=== PATIENT | male | born 1970 | race Two or more races ===

== ENCOUNTER → 2024-02-02 | Outpatient (CLI) | payer OTHER ==
[2024-02-02 09:31] LABS: Basophils # (auto) 0 10 ^3/uL (0-0.2); Basophils % (auto) 0.4 % (0.0-2.0); Eosinophils # (auto) 0.1 10 ^3/uL (0-0.8); Eosinophils % (auto) 1.1 % (0.0-7.0); Hematocrit 45.8 % (41.0-53.0); Hemoglobin 15.4 g/dL (13.5-17.5); Lymphocytes # (auto) 2.6 10 ^3/uL (0.4-5.4); Lymphocytes % (auto) 37.8 % (10.0-50.0); Mean Corpuscular Hemoglobin 28.8 pg (28.0-32.0); Mean Corpuscular Hgb Conc. 33.5 g/dL (32.0-36.0); Mean Corpuscular Volume 85.9 fL (80.0-100.0); Monocytes # (auto) 0.5 10 ^3/uL (0-1.3); Monocytes % (auto) 7.7 % (0.0-12.0); Neutrophils # (auto) 3.6 10 ^3/uL (1.6-8.6); Red Blood Cells 5.33 10^6/uL (4.5-5.90); White Blood Cell 6.8 10^3/uL (4.4-10.8)
[2024-02-02 10:14] LABS: Alanine Aminotransferase 55 U/L (7-40); Albumin 4.4 g/dL (3.2-4.8); Alkaline Phosphatase 79 U/L (46-116); Anion Gap 8 (5-15); Aspartate Aminotransferase 19 U/L (13-40); BUN/Creatinine Ratio 18.8 (10.0-20.0); Blood Urea Nitrogen 18 mg/dL (9-23); Calcium 9.5 mg/dL (8.5-10.1); Carbon Dioxide 26 mmol/L (20-30); Chloride 106 mmol/L (98-107); Glucose 101 mg/dL (74-106); LDL Cholesterol 138 mg/dL (< 100); Potassium 3.8 mmol/L (3.5-5.1); Sodium 140 mmol/L (136-145); Triglycerides 160 mg/dL (< 150)
[2024-02-02 10:15] LABS: Bilirubin, Total 0.5 mg/dL (0.2-1.0); Cholesterol 187 mg/dL (< 200); HDL Cholesterol 37 mg/dL (40-59); Total Protein 7.1 g/dL (5.7-8.2)
== END | disposition home or self-care (01) ==
LOC: LAB 09:13
PROVIDERS: ATTEND Student in an Organized Health Care Education/Training Program
DX: Z00.00 Encounter for general adult medical examination without abnormal findings (principal); Z12.11 Encounter for screening for malignant neoplasm of colon; K21.9 Gastro-esophageal reflux disease without esophagitis; R07.89 Other chest pain; R00.2 Palpitations
CPT/HCPCS: 36415; 80053; 80061; 85025

== ENCOUNTER → 2024-02-08 | Outpatient (CLI) | payer OTHER | END | disposition home or self-care (01) | LOC: LAB 12:51 | PROVIDERS: ATTEND Student in an Organized Health Care Education/Training Program | DX: Z12.11 Encounter for screening for malignant neoplasm of colon (principal); K21.9 Gastro-esophageal reflux disease without esophagitis; R00.2 Palpitations | CPT/HCPCS: 82274 ==

== ENCOUNTER → 2024-04-26 | Outpatient (CLI) | payer OTHER | END | disposition home or self-care (01) | LOC: XYW 08:54 | PROVIDERS: ATTEND Student in an Organized Health Care Education/Training Program | DX: I51.89 Other ill-defined heart diseases (principal); R00.2 Palpitations; R07.9 Chest pain, unspecified | CPT/HCPCS: 93306 ==

== ENCOUNTER → 2024-05-01 | Outpatient (CLI) | payer OTHER ==
[~2024-05-01] VITALS: Ht 167.6 cm; Wt 69.9 kg
[2024-05-01] MEDS: ADENOSINE 59 MG in GIVE UN-DILUTED 0 ML IV STA (10:20)
== END | disposition home or self-care (01) ==
LOC: XYW 08:26
PROVIDERS: ATTEND Student in an Organized Health Care Education/Training Program
DX: R07.9 Chest pain, unspecified (principal); R00.2 Palpitations; K21.9 Gastro-esophageal reflux disease without esophagitis
CPT/HCPCS: 78452; 93017; A9500; J0153

== ENCOUNTER → 2024-09-19 | Day surgery (SDC) | payer OTHER ==
[2024-09-14 09:22] LABS: Urine Bacteria None Seen /hpf (None Seen)
[2024-09-14 09:46] LABS: INR 1.01 (0.9-1.15); Prothrombin Time 10.7 sec (9.3-11.8)
[2024-09-14 09:53] LABS: Basophils # (auto) 0 10 ^3/uL (0-0.2); Basophils % (auto) 0.4 % (0.0-2.0); Eosinophils # (auto) 0.1 10 ^3/uL (0-0.8); Eosinophils % (auto) 1.9 % (0.0-7.0); Hemoglobin 16.2 g/dL (13.5-17.5); Lymphocytes # (auto) 2.5 10 ^3/uL (0.4-5.4); Lymphocytes % (auto) 35.5 % (10.0-50.0); Mean Corpuscular Hgb Conc. 33.8 g/dL (32.0-36.0); Mean Corpuscular Volume 85.7 fL (80.0-100.0); Monocytes # (auto) 0.5 10 ^3/uL (0-1.3); Monocytes % (auto) 7.8 % (0.0-12.0); Neutrophils # (auto) 3.8 10 ^3/uL (1.6-8.6); Neutrophils % (auto) 54.4 % (37.0-80.0); Nucleated Red Blood Cells % 0.2 %; Platelet Count (auto) 179 10^3/uL (140-450); Red Cell Distribution Width 13.5 % (11.8-14.3)
[2024-09-14 10:07] LABS: Urine Blood Negative /uL (Negative); Urine Clarity Clear (Clear); Urine Color Light-Yellow (Yellow); Urine Protein, UAD Negative (Negative); Urine Specific Gravity 1.023 (1.001-1.035); Urine Squamous Epithelial Cell None Seen /hpf (<5); Urine Urobilinogen Normal (Negative); Urine WBC 1 /HPF (0-3)
[2024-09-14 11:33] LABS: Alkaline Phosphatase 70 U/L (46-116); Calcium 9.9 mg/dL (8.7-10.4)
[2024-09-14 11:34] LABS: Anion Gap 8 (5-15); Blood Urea Nitrogen 13 mg/dL (9-23); Carbon Dioxide 26 mmol/L (20-31); Chloride 104 mmol/L (98-107); Potassium 3.9 mmol/L (3.5-5.1); Sodium 138 mmol/L (136-145)
[2024-09-14 11:35] LABS: Albumin 4.7 g/dL (3.2-4.8); Aspartate Aminotransferase 29 U/L (13-40); Bilirubin, Total 0.6 mg/dL (0.2-1.0); Total Protein 7.3 g/dL (5.7-8.2)
[2024-09-14 11:48] LABS: Alanine Aminotransferase 83 U/L (7-40); Glucose 106 mg/dL (74-106)
[~2024-09-19] VITALS: Ht 167.6 cm; Wt 77.1 kg
[~2024-09-19] MED LIST: BACITRACIN TOP OINT 1 UD PKG TOP ONE; DexAMETHasone SOD PHOS 10MG/1ML VIAL INJ ONE; ETOMIDATE (2MG/ML) 20ML VIAL IV ONE; GLYCOPYRROLATE 0.2 MG/ML 1ML VIAL ONE; HYDROmorphone HCL 2 MG/ML VL/or syr ONE; KETAMINE 50mg/ML 1ml syringe ONE; KETOROLAC TROMETH 30 MG/ML 1ML VIAL ONE; LIDOCAINE 2% (LOCAL ANESTH.) PF 5ml SDV ONE; Lidocaine/Epinephrine 1%-1:100,000 30ML VL ONE; MIDAZOLAM HCL 2MG/2ML 2ml VIAL (1mg/ml) ONE; MORPHINE SULF PF 5 MG/10 ML VIAL ONE; ONDANSETRON HCL 4 MG/2 ML VIAL ONE; PROPOFOL 10 MG/ML 20 ML IV ONE; ROCURONIUM 10MG/ML 10ML VIAL IV ONE; SUGAMMADEX 200mg/2ml Vial (100MG/ML) IV ONE; ceFAZolin 2 GM/D5W100ml 100 ML IV ONE; fentaNYL CITRATE 100 MCG/2 ML VL ONE
[2024-09-19 09:12] VITALS: PULSE 72; RESP 10; TEMP 96.3; O2SAT 95
--- NOTE | 2024-09-19 09:14 | DVHDS2 ---
New Physician D'charge PN Admitting Diagnosis Admitting Diagnosis Vasectomy consultation Discharge Diagnosis same Operations or Procedures Vasectomy Reason(s) For Hospitalization Surgery Treatment Plan Discharge Condition of Discharge Fair Disposition Home Discharge Instructions Diet: Regular Activity: Light activity Activity comment: No heavy lifting or sexual activity x1 week Medications: Given Follow Up Care Follow Up/Referral: Sperm count in two months Discharge Statement: "Patient was advised to return to the ER or call 911 if any headaches, dizziness, shortness of breath, chest pain, abdominal pain, bleeding, fevers, or worsening of medical condition. Patient was counseled about treatment plan, medications, possible side effects, patientverbalized understanding. All questions were answered to the best of my ability. This discharge took greater then 30 minutes in planning, reviewing documentation, counseling the patient, and discussing with other team members." SERGIO TORREZ MD Sep 19, 2024 09:14
[2024-09-19 09:20] VITALS: O2SAT 99
[2024-09-19 09:30] VITALS: O2SAT 99
[2024-09-19 09:35] VITALS: BP 112/83; PULSE 85; RESP 14; O2SAT 97
== END | disposition home or self-care (01) ==
LOC: SUR 07:07
PROVIDERS: ATTEND Urology
DX: Z30.2 Encounter for sterilization (principal); Z90.49 Acquired absence of other specified parts of digestive tract; Z98.890 Other specified postprocedural states
CPT/HCPCS: 36415; 55250; 80053; 81001; 85025; 85610; 85730; 87086; 88305; J1100; J1885; J2250; J2704; J3010

== ENCOUNTER 2025-05-04 09:03 | Day surgery (SDC) | payer OTHER ==
[2025-04-30 09:20] LABS: Hematocrit 47.5 % (41.0-53.0); Hemoglobin 16.3 g/dL (13.5-17.5); Mean Corpuscular Hemoglobin 29.5 pg (28.0-32.0); Mean Corpuscular Volume 85.7 fL (80.0-100.0); Nucleated Red Blood Cells % 0.1 %
[2025-04-30 09:34] LABS: Urine Protein, UAD Negative (Negative)
[2025-04-30 09:44] LABS: INR 1.01 (0.9-1.15); Partial Thromboplastin Time 26.4 SEC (24.5-34.5); Prothrombin Time 10.7 sec (9.3-11.8)
[2025-04-30 09:52] LABS: Albumin 4.5 g/dL (3.2-4.8); Alkaline Phosphatase 90 U/L (46-116); Anion Gap 10 (5-15); BUN/Creatinine Ratio 13.1 (10.0-20.0); Blood Urea Nitrogen 14 mg/dL (9-23); Calcium 9.3 mg/dL (8.7-10.4); Carbon Dioxide 27 mmol/L (20-31); Chloride 105 mmol/L (98-107); Glucose 102 mg/dL (74-106); Potassium 4.3 mmol/L (3.5-5.1); Sodium 142 mmol/L (136-145); Total Protein 7.6 g/dL (5.7-8.2)
[2025-04-30 09:53] LABS: Alanine Aminotransferase 69 U/L (7-40); Bilirubin, Total 0.4 mg/dL (0.2-1.0)
[~2025-05-04] VITALS: Ht 167.6 cm; Wt 77.1 kg
[~2025-05-04 09:03] MED LIST changes: -BACITRACIN TOP OINT 1 UD PKG TOP ONE; -DexAMETHasone SOD PHOS 10MG/1ML VIAL INJ ONE; -ETOMIDATE (2MG/ML) 20ML VIAL IV ONE; -GLYCOPYRROLATE 0.2 MG/ML 1ML VIAL ONE; -HYDROmorphone HCL 2 MG/ML VL/or syr ONE; -KETAMINE 50mg/ML 1ml syringe ONE; -KETOROLAC TROMETH 30 MG/ML 1ML VIAL ONE; -LIDOCAINE 2% (LOCAL ANESTH.) PF 5ml SDV ONE; -Lidocaine/Epinephrine 1%-1:100,000 30ML VL ONE; -MIDAZOLAM HCL 2MG/2ML 2ml VIAL (1mg/ml) ONE; -MORPHINE SULF PF 5 MG/10 ML VIAL ONE; +OMEP20TA PO; -ONDANSETRON HCL 4 MG/2 ML VIAL ONE; -PROPOFOL 10 MG/ML 20 ML IV ONE; -ROCURONIUM 10MG/ML 10ML VIAL IV ONE; -SUGAMMADEX 200mg/2ml Vial (100MG/ML) IV ONE; -ceFAZolin 2 GM/D5W100ml 100 ML IV ONE; -fentaNYL CITRATE 100 MCG/2 ML VL ONE
[2025-05-04 09:10] VITALS: TEMP 97.6
[2025-05-04] MEDS ORDERED: ONDANSETRON HCL 4 MG/2 ML VIAL ONE ×2 (11:01→12:10)
[2025-05-04] MEDS ORDERED: LIDOCAINE 1% INJ PF 5ML AMP ONE (11:01)
[2025-05-04] MEDS ORDERED: PROPOFOL 10 MG/ML 20 ML IV ONE ×2 (11:01→11:10)
[2025-05-04] MEDS ORDERED: METOCLOPRAMIDE HCL 5MG/ml INJ 2ml VIAL ONE (11:01)
[2025-05-04 11:24] VITALS: PULSE 63; RESP 12; O2SAT 97
[2025-05-04 11:48] VITALS: PULSE 61; RESP 12; O2SAT 99
[2025-05-04] MEDS: ONDANSETRON HCL 4 MG/2 ML VIAL IV PRN (12:12)
[2025-05-04] MEDS ORDERED: METOCLOPRAMIDE HCL 5MG/ml INJ 2ml VIAL IV PRN (12:15)
[2025-05-04 12:16] VITALS: BP 110/67; PULSE 59; RESP 14; O2SAT 96
--- NOTE | 2025-05-04 16:28 | DVHOP2 ---
Operative Report DATE OF OPERATION: 05/04/25 PROCEDURE: Colonoscopy. PREOPERATIVE INDICATION: The patient is a 54 -year-old male undergoing colonoscopy for colon cancer screening POSTOPERATIVE DIAGNOSES: 1. Patient had small sigmoid polyp that was seen and removed by cold biopsy forceps and the specimens were retrieved 2. Trace internal hemorrhoids otherwise essentially completely normal colonoscopy examination up to the cecum and terminal PROCEDURE PERFORMED BY: Jason Chavarria M.D. SCOPE: Olympus videocolonoscope. ASA CLASS: 2. PREOPERATIVE MEDICATIONS: Mac sedation, Kenny shah PROCEDURE IN DETAIL: After obtaining an informed consent, the patient was placed on left lateral decubitus position. He was then sedated with the above medications. A rectal examination was performed that was normal. The colonoscope was then passed through the anus into the rectosigmoid and through the descending, transverse, and ascending colon up to the cecum with visualization of the appendiceal orifice, base of the cecum and the ileocecal valve. The colonoscope was then withdrawn. The distal 5 cm of the terminal ileum were normal No masses or colitis was noted. There was no clear-cut diverticular disease. In the sigmoid colon there was a benign-appearing polyp that was seen and removed by cold biopsy forceps On retroflexion and straight on view the patient had trace internal hemorrhoids The patient tolerated the procedure well without difficulty. WITHDRAWAL TIME: 7 minutes QUALITY OF THE PREP: [place] Bowel Prep score: 9. COMPLICATIONS : None SPECIMENS: Sigmoid colon polyp DISPOSITION: Stable D/C to home PLAN: 1. Repeat colonoscopy base on biopsy result likely in 5 years 2. Resume GI soft diet advance as tolerated 3. Local anorectal hemorrhoidal care 4. Outpatient follow up with me in 4-6 weeks to review results and discuss further management JASON CHAVARRIA MD May 04, 2025 16:28
--- NOTE | 2025-05-04 16:31 | DVHOP2 ---
Operative Report DATE OF OPERATION: 05/04/25 PROCEDURE: Upper Endoscopy with biopsy. PREOPERATIVE INDICATION: The patient is a 54 -year-old male undergoing endoscopy for chronic GERD and dyspepsia POSTOPERATIVE DIAGNOSES: 1. 1-2 cm sliding-type hiatal hernia with minimal grade a erosive esophagitis 2. Mild antral gastritis with pre-pyloric antral gastric inflammatory nodules PROCEDURE PERFORMED BY: Jason Chavarria GI NURSE: Tunde SCOPE: Olympus videoendoscope. ASA CLASS: 2 PREOPERATIVE MEDICATIONS: Mac sedation, Kenny shah PROCEDURE IN DETAIL: After obtaining an informed consent, the patient was placed on left lateral decubitus position. The patient was then sedated with the above medications. A bite block was placed between his teeth. The endoscope was then passed through the oropharynx, into the esophagus, and through the stomach and pylorus up to the second and third part of the duodenum. The endoscope was then withdrawn. Second and 3rd part of the duodenal and the duodenal bulb were normal. Duodenal biopsies were obtained The pre-pyloric area antrum and distal body showed mild gastritis and there were two inflammatory pre-pyloric antral gastric nodules These were removed by cold biopsy forceps. On retroflexion the fundus and cardia were normal. The endoscope was then withdrawn into distal esophagus where the patient had a 1-2 cm sliding-type hiatal hernia with grade a erosive esophagitis GE junction biopsies were obtained. The remaining distal and proximal esophagus and oropharynx were unremarkable The patient tolerated the procedure well without difficulty. COMPLICATIONS : None SPECIMENS: Duodenal Biopsies Gastric antral inflammatory nodule biopsies GE junction biopsies DISPOSITION: Stable PLAN: 1. Await for biopsy result 2. Will place pt on Protonix 40 mg p.o. daily 3. Lifestyle and dietary modifications for GERD and avoid aspirin NSAIDs 4. Outpatient follow up with me in 4-6 weeks to review results and discuss further management JASON CHAVARRIA MD May 04, 2025 16:31
== END 2025-05-04 12:43 | disposition home or self-care (01) ==
LOC: GI 09:03
PROVIDERS: ATTEND Internal Medicine Gastroenterology
DX: Z12.11 Encounter for screening for malignant neoplasm of colon (principal); K21.00 Gastro-esophageal reflux disease with esophagitis, without bleeding; K29.50 Unspecified chronic gastritis without bleeding; K29.80 Duodenitis without bleeding; K22.70 Barrett's esophagus without dysplasia; K44.9 Diaphragmatic hernia without obstruction or gangrene; K63.5 Polyp of colon; K64.8 Other hemorrhoids; K31.89 Other diseases of stomach and duodenum; Z90.49 Acquired absence of other specified parts of digestive tract; Z98.52 Vasectomy status
CPT/HCPCS: 36415; 43239; 45380; 80053; 81001; 85025; 85610; 85730; 88305; 88313; 88342; J2405; J2704; J2765; J7030; J7040